=== PATIENT | male | born 1975 | race Caucasian/White ===

== ENCOUNTER → 2020-07-01 09:28 | Outpatient (CLI) | payer BC, SELFPAY ==
[2020-06-28 10:27] LABS: EST Glomerular Filtration Rate 70 mL/min (>60); Est Glom Filt Rate - Afr Amer 84 mL/min (>60)
--- NOTE | 2020-07-01 09:32 | RAD_ITS ---
NAME: Devaughn Gaytan PROCEDURE: IR Hip Arthrogram Injection Procedure WO Anesthesia ACCESSION NUMBER: [id number] CLINICAL HISTORY AND INDICATION: OTHER SPECIFIED CONGENITAL DEFORMITIES OF HIP COMPARISON: MRI from 06/02/11 Procedure: The procedure with its potential risks was explained to the patient, all the questions and concerns were answered and written informed consent was obtained. A timeout was observed to confirm identity, procedure and site. Localization of the patient''s left hip was performed under fluoroscopy. The patient''s left hipwas prepped and draped in the usual sterile fashion. Local anesthesia was achieved with subcutaneous injection of 1% lidocaine. Under fluoroscopic guidance, a 22-gauge spinal needle was advanced into the left hip joint, and intra-articular location was confirmed with administration of 2 ml ISOVUE 300 then 10 mL of diluted gadolinium based contrast ( 1:50:50 dilution of gadolinium contrast in Omnipaque 350 and normal saline, respectively ) was injected to the joint space. Intra-articular needle position was confirmed with intermittent fluoroscopy. The patient tolerated the procedure well, with no intermediate complications. The patient was escorted to the MR suite for further imaging. RAD/Arthrogram Hip w/ MRI IMPRESSION: Successful left hip arthrogram with injection of 10 mL of dilute MRI contrast. Electronically Signed: Roberto Ochoa MD at 11:21 EDT , Service support ,
--- NOTE | 2020-07-01 10:45 | MRI_ITS ---
STUDY: MR LEFT HIP ARTHROGRAPHY REASON FOR EXAM: Left hip pain with catching for more than 10 years. TECHNIQUE: Standardized fat and water weighted pulse sequences were obtained in all 3 orthogonal planes after intra-articular instillation of 0.8 mL of dilute Dotarem COMPARISON: Fluoroscopic image from arthrogram. FINDINGS: Normal hip joint without articular joint space narrowing. Normal acetabulum. There is mild fraying of the superior labrum (T1 coronal image 11) without discrete labral tear. Normal femoral head. Normal femoral neck and intratrochanteric region. Normal gluteus minimus, medius and iliopsoas tendons and distal insertions. There is no trochanteric, iliopsoas or iliopectineal bursitis. Normal visualized superior and inferior pubic rami. Normal ischial tuberosity. Normal origin of the hamstring tendons. Normal visualized iliac wing. MRI/Lower Ext/Jt Only/W Contrast IMPRESSION: Mild fraying of the superior labrum without discrete labral tear. Electronically Signed: Pepe Simons MD at 11:35 EDT Tel , Service support ,
== END ==
LOC: RAD 09:30
PROVIDERS: PCP Physician Assistant; Referring Provider Physician Assistant Surgical; Visit Provider Physician Assistant Surgical
DX: Q65.89 Other specified congenital deformities of hip (principal)
CPT/HCPCS: 27093; 36415; 73722; 77002; 82565; A9575; Q9967

== ENCOUNTER → 2024-09-26 | Outpatient (CLI) | payer BC, MEDICAID, SELFPAY ==
--- NOTE | 2024-09-26 15:20 | NEURO ---
NCS and/or EMG Patient Report Ordering Doctor: Luis Gr DATE OF SERVICE: 09/26/24 Devaughn presents complaints of intermittent numbness and tingling in the fingertips. Electrodiagnostic findings: Median motor nerve demonstrates normal distal latency, amplitude and conduction velocity bilaterally. Ulnar motor responses within normal limits bilaterally. Normal median and ulnar F?waves. Sensory responses are within normal limits. Needle EMG testing was performed the upper limbs. All muscles tested showed no evidence of denervation with normal motor unit action potentials. Electrodiagnostic impression: This is a normal electrodiagnostic study in the upper limbs. There is no electrodiagnostic evidence for peripheral neuropathy, including carpal tunnel or cubital tunnel syndrome. There is no electrodiagnostic evidence for cervical radiculopathy Multi Select Codes Neurology Neurology Interp Codes: 75503-46 Musc test done w/n test comp (interp) (2) and 59347-27 Nrv cndj test 13/> studies (interp)
== END | disposition home or self-care (01) ==
PROVIDERS: PCP Physician Assistant; Referring Provider Family Medicine; Visit Provider Family Medicine
DX: R20.0 Anesthesia of skin (principal); R20.2 Paresthesia of skin
CPT/HCPCS: 95886; 95913